=== PATIENT | female | born 1945 | race Caucasian/White ===

== ENCOUNTER 2019-04-19 17:14 | Inpatient (IN) ==
[2019-04-19] MEDS ORDERED: Furosemide 40 MG/4 ML VIAL IVP ONE (18:18)
[2019-04-19 18:35] LABS: Basophils % 0.4 %; Eosinophils % 0.8 %; Hematocrit 46.1 % (35.3-44.9); Hemoglobin 14.2 g/dL (11.5-15.4); Immature Granulocytes % 0.2 % (0-4); Lymphocytes # 0.6 K/mcL (0.6-4.6); Lymphocytes % 13.3 %; Mean Corpuscular HGB Conc 30.8 g/dL (31.6-35.5); Mean Corpuscular Hemoglobin 32.2 pg (28.0-33.3); Mean Corpuscular Volume 104.5 fL (83.0-100.0); Monocytes # 0.3 K/mcL (0.0-1.3); Monocytes % 5.4 %; Neutrophils # 3.8 K/mcL (1.6-8.9); Red Blood Count 4.41 M/mcL (3.82-4.97); Segmented Neutrophils % 79.9 %; White Blood Count 4.8 K/mcL (4.3-11.1)
[2019-04-19 18:38] LABS: Platelet Count 75 K/mcL (140-400)
[2019-04-19 18:39] LABS: INR 3.9
[2019-04-19 18:43] LABS: Prothrombin Time 44.7 Seconds (9.4-12.1)
[2019-04-19 18:47] LABS: Alanine Aminotransferase 12 Units/L (7-52); Albumin/Globulin Ratio 1.7 (1.1-2.2); Alkaline Phosphatase 136 Units/L (34-104); Aspartate Amino Transferase 15 Units/L (13-39); BUN/Creatinine Ratio 16 (6-26); Blood Urea Nitrogen 16 mg/dL (8-23); Carbon Dioxide 31 mEq/L (23-29); Chloride 104 mEq/L (98-107); Digoxin 0.9 ng/mL (0.8-2.0); Globulin 2.4 g/dL (2.4-3.5); Glucose 97 mg/dL (70-105); Osmolality,Calculated 293 (280-300); Potassium 3.9 mEq/L (3.5-5.1); Sodium 141 mEq/L (136-145); Total Protein 6.4 g/dL (6.4-8.9); eGFR For African Americans > 60 (> 60); eGFR For Non-African Americans 55 (> 60)
[2019-04-19] MEDS: carvediloL 6.25 MG TABLET PO SCH (21:26)
[2019-04-19] MEDS: Cyanocobalamin (B-12) 1,000 MCG TABLET PO SCH (21:27)
[2019-04-19] MEDS: Lactobacillus 1 EACH CAP.SPRINK PO SCH (21:27)
[2019-04-19] MEDS: Acetaminophen 325 MG TABLET PO PRN (21:27)
[2019-04-19] MEDS: Cholestyramine 4 GM POWD.PACK PO SCH (21:27)
[2019-04-19] MEDS: Lisinopril 20 MG TABLET PO SCH (21:27)
[2019-04-20] MEDS: Furosemide 40 MG/4 ML VIAL IVP SCH ×4 (02:02→17:45)
[2019-04-20 05:55] LABS: INR 3.8
[2019-04-20 05:58] LABS: Prothrombin Time 43.7 Seconds (9.4-12.1)
[2019-04-20 06:06] LABS: BUN/Creatinine Ratio 15 (6-26); Blood Urea Nitrogen 14 mg/dL (8-23); Calcium 9.1 mg/dL (8.6-10.3); Carbon Dioxide 33 mEq/L (23-29); Chloride 102 mEq/L (98-107); Glucose 96 mg/dL (70-105); Osmolality,Calculated 294 (280-300); Sodium 142 mEq/L (136-145); eGFR For African Americans > 60 (> 60); eGFR For Non-African Americans 57 (> 60)
[2019-04-20] MEDS ORDERED: Furosemide 40 MG TABLET PO SCH (08:00)
[2019-04-20] MEDS: carvediloL 6.25 MG TABLET PO SCH ×2 (08:36→20:27)
[2019-04-20] MEDS ORDERED: NON-FORMULARY MEDICATION 1 EACH EACH (Biotin 1 MG) PO SCH (09:00)
[2019-04-20] MEDS ORDERED: Lactobacillus 1 EACH CAP.SPRINK PO SCH (09:00)
[2019-04-20] MEDS ORDERED: Lisinopril 20 MG TABLET PO SCH (09:00)
[2019-04-20] MEDS ORDERED: Cholestyramine 4 GM POWD.PACK PO SCH (09:00)
[2019-04-20] MEDS: metOLazone 5 MG TABLET PO SCH (09:01)
[2019-04-20] MEDS: Famotidine 20 MG TABLET PO SCH (09:01)
[2019-04-20] MEDS: Acetaminophen 325 MG TABLET PO PRN ×2 (09:03→15:59)
[2019-04-20] MEDS ORDERED: *HR* Warfarin 2.5 MG TABLET PO SCH (18:00)
[2019-04-20] MEDS: *HR* HYDROcodone/Acet 5/325 mg TABLET PO PRN (18:06)
[2019-04-20] MEDS: Cyanocobalamin (B-12) 1,000 MCG TABLET PO SCH (20:28)
[2019-04-20] MEDS: Lisinopril 20 MG TABLET PO SCH (20:28)
[2019-04-20] MEDS: Lactobacillus 1 EACH CAP.SPRINK PO SCH (20:28)
[2019-04-20] MEDS: Cholestyramine 4 GM POWD.PACK PO SCH (20:29)
[2019-04-21] MEDS: Furosemide 40 MG/4 ML VIAL IVP SCH ×4 (00:17→18:55)
[2019-04-21] MEDS: Acetaminophen 325 MG TABLET PO PRN ×2 (03:50→21:10)
[2019-04-21 05:52] LABS: INR 2.9; Prothrombin Time 32.6 Seconds (9.4-12.1)
[2019-04-21 06:01] LABS: BUN/Creatinine Ratio 14 (6-26); Blood Urea Nitrogen 14 mg/dL (8-23); Calcium 8.8 mg/dL (8.6-10.3); Carbon Dioxide 35 mEq/L (23-29); Chloride 98 mEq/L (98-107); Glucose 98 mg/dL (70-105); Osmolality,Calculated 292 (280-300); Potassium 3.5 mEq/L (3.5-5.1); Sodium 141 mEq/L (136-145); eGFR For African Americans > 60 (> 60); eGFR For Non-African Americans 57 (> 60)
[2019-04-21] MEDS: Famotidine 20 MG TABLET PO SCH (08:31)
[2019-04-21] MEDS: carvediloL 6.25 MG TABLET PO SCH ×2 (08:31→21:11)
[2019-04-21] MEDS: metOLazone 5 MG TABLET PO SCH (08:31)
[2019-04-21] MEDS ORDERED: Perflutren Lipid Microsphere 1.3 ML in 0.9 % Sodium Chloride 8.7 ML IVP ONE (18:19)
[2019-04-21] MEDS ORDERED: *HR* Warfarin 3 MG TABLET PO ONE (20:03)
[2019-04-21] MEDS: Lactobacillus 1 EACH CAP.SPRINK PO SCH (21:09)
[2019-04-21] MEDS: Cholestyramine 4 GM POWD.PACK PO SCH (21:09)
[2019-04-21] MEDS: Lisinopril 20 MG TABLET PO SCH (21:10)
[2019-04-21] MEDS: Cyanocobalamin (B-12) 1,000 MCG TABLET PO SCH (21:10)
[2019-04-22] MEDS: Furosemide 40 MG/4 ML VIAL IVP SCH ×5 (00:59→23:35)
[2019-04-22 05:46] LABS: Hematocrit 40.9 % (35.3-44.9); Hemoglobin 13.2 g/dL (11.5-15.4); Immature Granulocytes % 0.2 % (0-4); Lymphocytes % 20.8 %; Mean Corpuscular HGB Conc 32.3 g/dL (31.6-35.5); Mean Corpuscular Hemoglobin 32.1 pg (28.0-33.3); Mean Corpuscular Volume 99.5 fL (83.0-100.0); Mean Platelet Volume 10.7 fL (9.4-12.4); Red Blood Count 4.11 M/mcL (3.82-4.97); Red Cell Distribution Width 13.7 % (11.5-14.5); White Blood Count 4.1 K/mcL (4.3-11.1)
[2019-04-22 05:47] LABS: Basophils % 0.5 %; Eosinophils # 0.1 K/mcL (0.0-0.6); Eosinophils % 2.2 %; Lymphocytes # 0.9 K/mcL (0.6-4.6); Monocytes # 0.4 K/mcL (0.0-1.3); Monocytes % 9.3 %
[2019-04-22 05:54] LABS: Neutrophils # 2.8 K/mcL (1.6-8.9); Platelet Count 82 K/mcL (140-400)
[2019-04-22 05:59] LABS: INR 1.8; Prothrombin Time 19.9 Seconds (9.4-12.1)
[2019-04-22 06:28] LABS: BUN/Creatinine Ratio 18 (6-26); Blood Urea Nitrogen 17 mg/dL (8-23); Carbon Dioxide 40 mEq/L (23-29); Chloride 92 mEq/L (98-107); Glucose 102 mg/dL (70-105); Osmolality,Calculated 290 (280-300); Potassium 3.5 mEq/L (3.5-5.1); Sodium 139 mEq/L (136-145); eGFR For African Americans > 60 (> 60); eGFR For Non-African Americans 57 (> 60)
[2019-04-22] MEDS: metOLazone 5 MG TABLET PO SCH (09:20)
[2019-04-22] MEDS: Famotidine 20 MG TABLET PO SCH (09:20)
[2019-04-22] MEDS: carvediloL 6.25 MG TABLET PO SCH ×2 (09:21→22:55)
[2019-04-22] MEDS: Acetaminophen 325 MG TABLET PO PRN ×2 (10:05→22:57)
[2019-04-22] MEDS: *HR* Warfarin 3 MG TABLET PO SCH (18:29)
[2019-04-22] MEDS: Cholestyramine 4 GM POWD.PACK PO SCH (22:55)
[2019-04-22] MEDS: Lactobacillus 1 EACH CAP.SPRINK PO SCH (22:56)
[2019-04-22] MEDS: Cyanocobalamin (B-12) 1,000 MCG TABLET PO SCH (22:56)
[2019-04-22] MEDS: Lisinopril 20 MG TABLET PO SCH (22:57)
[2019-04-23 05:43] LABS: Basophils % 0.5 %; Eosinophils # 0.1 K/mcL (0.0-0.6); Eosinophils % 1.9 %; Hematocrit 41.5 % (35.3-44.9); Hemoglobin 13.3 g/dL (11.5-15.4); Immature Granulocytes % 0.2 % (0-4); Lymphocytes % 20.2 %; Mean Corpuscular Hemoglobin 32.1 pg (28.0-33.3); Mean Corpuscular Volume 100.2 fL (83.0-100.0); Mean Platelet Volume 10.8 fL (9.4-12.4); Monocytes # 0.5 K/mcL (0.0-1.3); Monocytes % 10.8 %; Neutrophils # 2.8 K/mcL (1.6-8.9); Red Blood Count 4.14 M/mcL (3.82-4.97); Red Cell Distribution Width 13.7 % (11.5-14.5); Segmented Neutrophils % 66.4 %; White Blood Count 4.2 K/mcL (4.3-11.1)
[2019-04-23 05:45] LABS: Lymphocytes # 0.9 K/mcL (0.6-4.6); Platelet Count 81 K/mcL (140-400)
[2019-04-23 05:48] LABS: INR 1.5; Prothrombin Time 17.1 Seconds (9.4-12.1)
[2019-04-23] MEDS: Furosemide 40 MG/4 ML VIAL IVP SCH (06:43)
[2019-04-23 07:41] LABS: BUN/Creatinine Ratio 20 (6-26); Blood Urea Nitrogen 21 mg/dL (8-23); Calcium 9.4 mg/dL (8.6-10.3); Carbon Dioxide 43 mEq/L (23-29); Chloride 90 mEq/L (98-107); Glucose 102 mg/dL (70-105); Osmolality,Calculated 293 (280-300); Potassium 3.5 mEq/L (3.5-5.1); Sodium 140 mEq/L (136-145); eGFR For African Americans > 60 (> 60); eGFR For Non-African Americans 51 (> 60)
[2019-04-23] MEDS ORDERED: Furosemide 40 MG TABLET PO SCH (08:00)
[2019-04-23] MEDS: Famotidine 20 MG TABLET PO SCH (08:22)
[2019-04-23] MEDS: metOLazone 5 MG TABLET PO SCH (08:23)
[2019-04-23] MEDS: carvediloL 6.25 MG TABLET PO SCH ×2 (08:25→21:41)
[2019-04-23] MEDS: Furosemide 40 MG TABLET PO SCH ×2 (12:13→18:18)
[2019-04-23] MEDS: *HR* Warfarin 3 MG TABLET PO SCH (18:18)
[2019-04-23] MEDS: Acetaminophen 325 MG TABLET PO PRN (18:23)
[2019-04-23] MEDS: Cholestyramine 4 GM POWD.PACK PO SCH (21:39)
[2019-04-23] MEDS: Lisinopril 20 MG TABLET PO SCH (21:40)
[2019-04-23] MEDS: Lactobacillus 1 EACH CAP.SPRINK PO SCH (21:40)
[2019-04-23] MEDS: Cyanocobalamin (B-12) 1,000 MCG TABLET PO SCH (21:40)
[2019-04-24] MEDS: Acetaminophen 325 MG TABLET PO PRN ×4 (01:47→21:00)
[2019-04-24] MEDS: *HR* HYDROcodone/Acet 5/325 mg TABLET PO PRN (04:31)
[2019-04-24 06:40] LABS: INR 1.3; Prothrombin Time 15.2 Seconds (9.4-12.1)
[2019-04-24 07:16] LABS: Calcium 9.3 mg/dL (8.6-10.3); Potassium 3.1 mEq/L (3.5-5.1)
[2019-04-24] MEDS: Furosemide 40 MG TABLET PO SCH ×2 (08:43→18:41)
[2019-04-24] MEDS: carvediloL 6.25 MG TABLET PO SCH ×2 (08:43→18:39)
[2019-04-24] MEDS: metOLazone 5 MG TABLET PO SCH (08:43)
[2019-04-24] MEDS: Famotidine 20 MG TABLET PO SCH (08:54)
[2019-04-24] MEDS: *HR* Enoxaparin 100 MG/ML SYRINGE SQ SCH (13:38)
[2019-04-24 17:16] LABS: Bilirubin,Urine Negative (Negative); Blood,Urine Moderate (Negative); Clarity,Urine Clear (Clear); Color,Urine Yellow (Yellow); Glucose,Urine (UA) Normal (Normal); Ketones,Urine Negative (Negative); Leukocyte Esterase,Urine Moderate (Negative); Nitrite,Urine Negative (Negative); PH,Urine 7.5 pH Units (5.0-8.0); Protein,Urine 30 mg/dL (Neg-Trace); Urobilinogen,Urine Normal (Normal)
[2019-04-24 17:21] LABS: Bacteria,Urine Moderate per hpf (None-Few); RBC,Urine 15-30 per hpf (0-3); Squamous Epithelial Cell,Urine Moderate per lpf (None-Few); WBC,Urine TNTC per hpf (0-3)
[2019-04-24] MEDS ORDERED: *HR* Warfarin 2 MG TABLET PO SCH (18:00)
[2019-04-24] MEDS: Lactobacillus 1 EACH CAP.SPRINK PO SCH (20:58)
[2019-04-24] MEDS: Cholestyramine 4 GM POWD.PACK PO SCH (20:58)
[2019-04-24] MEDS: Cyanocobalamin (B-12) 1,000 MCG TABLET PO SCH (20:59)
[2019-04-24] MEDS: Lisinopril 20 MG TABLET PO SCH (20:59)
[2019-04-25] MEDS: Acetaminophen 325 MG TABLET PO PRN (03:21)
[2019-04-25 05:13] LABS: INR 1.3; Prothrombin Time 14.7 Seconds (9.4-12.1)
[2019-04-25 05:38] LABS: BUN/Creatinine Ratio 27 (6-26); Blood Urea Nitrogen 28 mg/dL (8-23); Calcium 9.6 mg/dL (8.6-10.3); Carbon Dioxide 40 mEq/L (23-29); Chloride 90 mEq/L (98-107); Glucose 113 mg/dL (70-105); Osmolality,Calculated 294 (280-300); Potassium 3.6 mEq/L (3.5-5.1); Sodium 139 mEq/L (136-145); eGFR For African Americans > 60 (> 60); eGFR For Non-African Americans 52 (> 60)
[2019-04-25] MEDS ORDERED: Nitrofurantoin (BID) 100 MG CAPSULE PO SCH (08:00)
[2019-04-25] MEDS: Famotidine 20 MG TABLET PO SCH (08:38)
[2019-04-25] MEDS: carvediloL 6.25 MG TABLET PO SCH (08:39)
[2019-04-25] MEDS: Furosemide 40 MG TABLET PO SCH (08:39)
[2019-04-25] MEDS: metOLazone 5 MG TABLET PO SCH (08:40)
[2019-04-25] MEDS: *HR* Enoxaparin 100 MG/ML SYRINGE SQ SCH (11:38)
[2019-04-25] MEDS: *HR* HYDROcodone/Acet 5/325 mg TABLET PO PRN (12:13)
[2019-04-25 13:43] VITALS: BP 159/94
== END 2019-04-25 13:50 | disposition home or self-care (01) | DRG 292 ==
LOC: INPGRE
PROVIDERS: ADMIT Family Medicine; ATTEND Family Medicine

== ENCOUNTER 2020-09-25 14:14 | Inpatient (IN) ==
[2020-09-25] MEDS ORDERED: Naloxone 0.4 MG/ML INJ IVP PRN (15:45)
[2020-09-25] MEDS ORDERED: Ibuprofen 400 MG TABLET PO PRN (15:45)
[2020-09-25] MEDS ORDERED: Melatonin 3 MG TABLET PO PRN (15:45)
[2020-09-25] MEDS ORDERED: Mag Hydrox/Al Hydrox/Simeth 30 ML UDC PO PRN (15:45)
[2020-09-25] MEDS ORDERED: Ondansetron ODT 4 MG TAB.RAPDIS SL PRN (15:45)
[2020-09-25] MEDS ORDERED: Furosemide 40 MG in 0.9 % Sodium Chloride 50 ML IV SCH (15:48)
[2020-09-25 17:37] LABS: Hematocrit 36.5 % (35.3-44.9); Hemoglobin 11.9 g/dL (11.5-15.4); Mean Corpuscular HGB Conc 32.6 g/dL (31.6-35.5); Mean Corpuscular Hemoglobin 32.2 pg (28.0-33.3); Mean Corpuscular Volume 98.9 fL (83.0-100.0); Mean Platelet Volume 9.4 fL (9.4-12.4); Platelet Count 141 K/mcL (140-400); Red Blood Count 3.69 M/mcL (3.82-4.97); White Blood Count 5.1 K/mcL (4.3-11.1)
[2020-09-25 17:39] LABS: INR 1.6; Prothrombin Time 18.4 Seconds (9.4-12.1)
[2020-09-25 17:49] LABS: Calcium 8.9 mg/dL (8.6-10.3); Potassium 4.6 mEq/L (3.5-5.1)
[2020-09-25] MEDS: Furosemide 40 MG/4 ML VIAL IVP SCH ×2 (18:05→21:12)
[2020-09-25] MEDS ORDERED: *HR* Enoxaparin 120 MG/0.8 ML SYRINGE SQ ONE (19:30)
[2020-09-25] MEDS ORDERED: *HR* Warfarin 4 MG TABLET PO ONE (20:00)
[2020-09-25 20:57] LABS: Influenza A PCR Negative (Negative); Influenza B PCR Negative (Negative); Resp. Syncytial Virus PCR Negative (Negative)
[2020-09-25 21:01] LABS: SARS-CoV-2 by PCR (In House) Negative (Negative)
[2020-09-25] MEDS: Metoprolol XL (24 HR) Succ 50 MG TAB.ER.24H PO SCH (21:11)
[2020-09-25] MEDS: Sacubitril/Valsartan 49/51 MG 1 TABLET PO SCH (21:13)
[2020-09-25] MEDS: Cholestyramine 4 GM POWD.PACK PO SCH (22:22)
[2020-09-26 04:50] LABS: INR 1.7; Prothrombin Time 18.9 Seconds (9.4-12.1)
[2020-09-26 05:01] LABS: Calcium 8.8 mg/dL (8.6-10.3); Potassium 4.6 mEq/L (3.5-5.1)
[2020-09-26] MEDS ORDERED: *HR* Enoxaparin 30 MG/0.3 ML SYRINGE SQ SCH (06:00)
[2020-09-26] MEDS: Sacubitril/Valsartan 49/51 MG 1 TABLET PO SCH ×2 (08:01→21:27)
[2020-09-26] MEDS: Famotidine 20 MG TABLET PO SCH (08:01)
[2020-09-26] MEDS: Patient Taking Own Medication 1 EACH PO SCH (08:02)
[2020-09-26] MEDS: Spironolactone 25 MG TABLET PO SCH (08:02)
[2020-09-26] MEDS: Metoprolol XL (24 HR) Succ 50 MG TAB.ER.24H PO SCH ×2 (08:02→21:27)
[2020-09-26] MEDS: Furosemide 40 MG/4 ML VIAL IVP SCH ×2 (08:02→16:31)
[2020-09-26] MEDS: Cholestyramine 4 GM POWD.PACK PO SCH ×2 (09:26→21:28)
[2020-09-26] MEDS: Multivit/Ca/Min/Fe/FA 1 TAB TABLET PO SCH (16:30)
[2020-09-26] MEDS: Acetaminophen 325 MG TABLET PO PRN (16:30)
[2020-09-26] MEDS ORDERED: Warfarin perPT PO PRN (18:00)
[2020-09-26] MEDS ORDERED: *HR* Warfarin 4 MG TABLET PO ONE (18:00)
[2020-09-26] MEDS ORDERED: Furosemide 100 MG/10 ML VIAL IVP SCH (21:00)
[2020-09-27 05:08] LABS: INR 1.6; Prothrombin Time 17.7 Seconds (9.4-12.1)
[2020-09-27 05:14] LABS: Calcium 8.8 mg/dL (8.6-10.3); Potassium 4.1 mEq/L (3.5-5.1)
[2020-09-27] MEDS: Furosemide 40 MG/4 ML VIAL IVP SCH ×2 (09:57→16:13)
[2020-09-27] MEDS: Metoprolol XL (24 HR) Succ 50 MG TAB.ER.24H PO SCH ×2 (09:57→20:03)
[2020-09-27] MEDS: Sacubitril/Valsartan 49/51 MG 1 TABLET PO SCH ×2 (09:58→20:03)
[2020-09-27] MEDS: Famotidine 20 MG TABLET PO SCH (09:58)
[2020-09-27] MEDS: Multivit/Ca/Min/Fe/FA 1 TAB TABLET PO SCH (09:58)
[2020-09-27] MEDS: Cholestyramine 4 GM POWD.PACK PO SCH ×2 (09:58→21:02)
[2020-09-27] MEDS: Spironolactone 25 MG TABLET PO SCH (09:58)
[2020-09-27] MEDS: Acetaminophen 325 MG TABLET PO PRN ×2 (10:02→20:02)
[2020-09-27] MEDS: Patient Taking Own Medication 1 EACH PO SCH (10:13)
[2020-09-27] MEDS: Lactobacillus 1 EACH CAP.SPRINK PO SCH (11:11)
[2020-09-27] MEDS ORDERED: *HR* Warfarin 3 MG TABLET PO ONE (12:00)
[2020-09-28 06:07] LABS: INR 1.6; Prothrombin Time 17.9 Seconds (9.4-12.1)
[2020-09-28 06:18] LABS: Potassium 3.9 mEq/L (3.5-5.1)
[2020-09-28] MEDS: Famotidine 20 MG TABLET PO SCH (10:19)
[2020-09-28] MEDS: Lactobacillus 1 EACH CAP.SPRINK PO SCH (10:19)
[2020-09-28] MEDS: Spironolactone 25 MG TABLET PO SCH (10:19)
[2020-09-28] MEDS: Cholestyramine 4 GM POWD.PACK PO SCH ×2 (10:19→19:44)
[2020-09-28] MEDS: Sacubitril/Valsartan 49/51 MG 1 TABLET PO SCH ×2 (10:19→19:43)
[2020-09-28] MEDS: Patient Taking Own Medication 1 EACH PO SCH (10:20)
[2020-09-28] MEDS: Metoprolol XL (24 HR) Succ 50 MG TAB.ER.24H PO SCH ×2 (10:20→19:43)
[2020-09-28] MEDS: Furosemide 40 MG/4 ML VIAL IVP SCH ×2 (10:20→17:21)
[2020-09-28] MEDS: Multivit/Ca/Min/Fe/FA 1 TAB TABLET PO SCH (10:21)
[2020-09-28] MEDS ORDERED: *HR* Warfarin 7.5 MG TABLET PO ONE (18:00)
[2020-09-29 05:18] LABS: INR 1.7; Prothrombin Time 19.5 Seconds (9.4-12.1)
[2020-09-29 05:28] LABS: Calcium 8.9 mg/dL (8.6-10.3); Potassium 3.9 mEq/L (3.5-5.1)
[2020-09-29] MEDS: Multivit/Ca/Min/Fe/FA 1 TAB TABLET PO SCH (08:43)
[2020-09-29] MEDS: Lactobacillus 1 EACH CAP.SPRINK PO SCH (08:43)
[2020-09-29] MEDS: Famotidine 20 MG TABLET PO SCH (08:43)
[2020-09-29] MEDS: Furosemide 40 MG/4 ML VIAL IVP SCH ×2 (08:43→17:55)
[2020-09-29] MEDS: Spironolactone 25 MG TABLET PO SCH (08:43)
[2020-09-29] MEDS: Metoprolol XL (24 HR) Succ 50 MG TAB.ER.24H PO SCH ×3 (08:43→22:41)
[2020-09-29] MEDS: Acetaminophen 325 MG TABLET PO PRN (08:43)
[2020-09-29] MEDS: Sacubitril/Valsartan 49/51 MG 1 TABLET PO SCH ×2 (08:43→22:40)
[2020-09-29] MEDS: Patient Taking Own Medication 1 EACH PO SCH (09:35)
[2020-09-29] MEDS: Cholestyramine 4 GM POWD.PACK PO SCH ×2 (09:35→22:40)
[2020-09-29] MEDS ORDERED: metOLazone 5 MG TABLET PO STA (16:01)
[2020-09-29] MEDS ORDERED: *HR* Warfarin 3 MG TABLET PO ONE (18:00)
[2020-09-29] MEDS: *HR* HYDROcodone/Acet 5/325 mg TABLET PO PRN (22:41)
[2020-09-30 06:06] LABS: INR 1.7; Prothrombin Time 19.9 Seconds (9.4-12.1)
[2020-09-30 06:19] LABS: Calcium 9.2 mg/dL (8.6-10.3); Potassium 3.8 mEq/L (3.5-5.1)
[2020-09-30] MEDS: Metoprolol XL (24 HR) Succ 50 MG TAB.ER.24H PO SCH ×3 (08:02→21:37)
[2020-09-30] MEDS: Lactobacillus 1 EACH CAP.SPRINK PO SCH (08:02)
[2020-09-30] MEDS: Acetaminophen 325 MG TABLET PO PRN (08:02)
[2020-09-30] MEDS: Multivit/Ca/Min/Fe/FA 1 TAB TABLET PO SCH (08:02)
[2020-09-30] MEDS: Sacubitril/Valsartan 49/51 MG 1 TABLET PO SCH ×2 (08:03→21:39)
[2020-09-30] MEDS: Famotidine 20 MG TABLET PO SCH (08:03)
[2020-09-30] MEDS: Furosemide 40 MG/4 ML VIAL IVP SCH ×2 (08:03→15:40)
[2020-09-30] MEDS: Spironolactone 25 MG TABLET PO SCH (08:03)
[2020-09-30] MEDS: Cholestyramine 4 GM POWD.PACK PO SCH ×2 (08:03→21:39)
[2020-09-30] MEDS: Patient Taking Own Medication 1 EACH PO SCH (08:04)
[2020-09-30] MEDS ORDERED: metOLazone 5 MG TABLET PO ONE (15:00)
[2020-09-30] MEDS: *HR* HYDROcodone/Acet 5/325 mg TABLET PO PRN ×2 (15:40→21:37)
[2020-09-30] MEDS ORDERED: *HR* Warfarin 7.5 MG TABLET PO ONE (18:00)
[2020-10-01 05:25] LABS: Hematocrit 37.9 % (35.3-44.9); Hemoglobin 12.4 g/dL (11.5-15.4); Mean Corpuscular HGB Conc 32.7 g/dL (31.6-35.5); Mean Corpuscular Volume 97.7 fL (83.0-100.0); Mean Platelet Volume 10.1 fL (9.4-12.4); Platelet Count 146 K/mcL (140-400); Red Blood Count 3.88 M/mcL (3.82-4.97); Red Cell Distribution Width 12.7 % (11.5-14.5); White Blood Count 7.6 K/mcL (4.3-11.1)
[2020-10-01 05:27] LABS: Prothrombin Time 23.1 Seconds (9.4-12.1)
[2020-10-01 05:41] LABS: Calcium 9.1 mg/dL (8.6-10.3); Potassium 4.2 mEq/L (3.5-5.1)
[2020-10-01] MEDS: Furosemide 40 MG/4 ML VIAL IVP SCH ×2 (09:09→17:30)
[2020-10-01] MEDS: Sacubitril/Valsartan 49/51 MG 1 TABLET PO SCH ×2 (09:09→20:52)
[2020-10-01] MEDS: Multivit/Ca/Min/Fe/FA 1 TAB TABLET PO SCH (09:09)
[2020-10-01] MEDS: Lactobacillus 1 EACH CAP.SPRINK PO SCH (09:09)
[2020-10-01] MEDS: metOLazone 5 MG TABLET PO SCH ×2 (09:09→09:10)
[2020-10-01] MEDS: Famotidine 20 MG TABLET PO SCH (09:09)
[2020-10-01] MEDS: Spironolactone 25 MG TABLET PO SCH (09:09)
[2020-10-01] MEDS: Metoprolol XL (24 HR) Succ 50 MG TAB.ER.24H PO SCH ×3 (09:09→20:53)
[2020-10-01] MEDS: Cholestyramine 4 GM POWD.PACK PO SCH ×2 (09:10→20:53)
[2020-10-01] MEDS: Patient Taking Own Medication 1 EACH PO SCH (09:11)
[2020-10-01] MEDS: Acetaminophen 325 MG TABLET PO PRN (09:24)
[2020-10-01] MEDS ORDERED: *HR* Warfarin 5 MG TABLET PO ONE (18:00)
[2020-10-01] MEDS: *HR* HYDROcodone/Acet 5/325 mg TABLET PO PRN (20:52)
[2020-10-02 05:08] LABS: Basophils % 0.4 %; Eosinophils # 0.1 K/mcL (0.0-0.6); Eosinophils % 1.6 %; Hematocrit 38.8 % (35.3-44.9); Hemoglobin 12.9 g/dL (11.5-15.4); Immature Granulocytes % 0.4 % (0-4); Lymphocytes # 1.1 K/mcL (0.6-4.6); Lymphocytes % 12.4 %; Mean Corpuscular HGB Conc 33.2 g/dL (31.6-35.5); Mean Corpuscular Hemoglobin 32.2 pg (28.0-33.3); Mean Corpuscular Volume 96.8 fL (83.0-100.0); Monocytes # 0.8 K/mcL (0.0-1.3); Monocytes % 9.2 %; Neutrophils # 6.5 K/mcL (1.6-8.9); Platelet Count 155 K/mcL (140-400); Red Blood Count 4.01 M/mcL (3.82-4.97); Red Cell Distribution Width 12.7 % (11.5-14.5); White Blood Count 8.6 K/mcL (4.3-11.1)
[2020-10-02 05:11] LABS: INR 2.2; Prothrombin Time 24.6 Seconds (9.4-12.1)
[2020-10-02 05:22] LABS: Calcium 9.1 mg/dL (8.6-10.3); Potassium 3.8 mEq/L (3.5-5.1)
[2020-10-02] MEDS: Famotidine 20 MG TABLET PO SCH (05:44)
[2020-10-02] MEDS: *HR* HYDROcodone/Acet 5/325 mg TABLET PO PRN (05:44)
[2020-10-02] MEDS: Spironolactone 25 MG TABLET PO SCH (08:02)
[2020-10-02] MEDS: Lactobacillus 1 EACH CAP.SPRINK PO SCH (08:02)
[2020-10-02] MEDS: Sacubitril/Valsartan 49/51 MG 1 TABLET PO SCH (08:02)
[2020-10-02] MEDS: metOLazone 5 MG TABLET PO SCH (08:03)
[2020-10-02] MEDS: Multivit/Ca/Min/Fe/FA 1 TAB TABLET PO SCH (08:03)
[2020-10-02] MEDS: Cholestyramine 4 GM POWD.PACK PO SCH (08:03)
[2020-10-02] MEDS: Furosemide 40 MG/4 ML VIAL IVP SCH (08:03)
[2020-10-02] MEDS: Metoprolol XL (24 HR) Succ 50 MG TAB.ER.24H PO SCH (08:03)
[2020-10-02] MEDS: Patient Taking Own Medication 1 EACH PO SCH (08:04)
[2020-10-02 16:15] VITALS: BP 129/82
[2020-10-02] MEDS ORDERED: *HR* Warfarin 5 MG TABLET PO ONE (18:00)
== END 2020-10-02 16:15 | disposition short-term general hospital (02) | DRG 292 ==
LOC: INPGRE
PROVIDERS: ADMIT Family Medicine; ATTEND Family Medicine